=== PATIENT | male | born 1970 | race Caucasian/White ===

== ENCOUNTER → 2020-07-10 | Outpatient (CLI) | payer BC ==
[2020-07-11 10:12] LABS: HBSAG SCREEN Negative (Negative); HCV AB <0.1 (0.0-0.9); HEP B CORE AB, TOT Negative (Negative)
== END ==
LOC: LAB 09:17
PROVIDERS: Internal Medicine
DX: D89.89 Other specified disorders involving the immune mechanism, not elsewhere classified (principal); R76.8 Other specified abnormal immunological findings in serum; M25.572 Pain in left ankle and joints of left foot; M25.542 Pain in joints of left hand; M25.541 Pain in joints of right hand; Z79.899 Other long term (current) drug therapy
CPT/HCPCS: 36415; 73130; 73630; 83520; 84550; 85652; 86140; 86704; 86803; 87340